=== PATIENT | female | born 1940 | race Caucasian/White ===

== ENCOUNTER 2019-01-04 14:13 | Emergency (ER) | payer MEDICARE ==
[2019-01-04 15:17] VITALS: BP 151/98
--- NOTE | 2019-01-04 15:21 | EDM.PDOC ---
<ReeseOpal wilson - Last Filed: 01/04/19 15:24> ED HPI GENERAL MEDICAL PROBLEM - General Chief Complaint: Back Pain or Injury Stated Complaint: BACK PAIN Time Seen by Provider: 01/04/19 14:45 Source of Information: Reports: Patient, Family History Limitations: Reports: No Limitations - History of Present Illness INITIAL COMMENTS - FREE TEXT/NARRATIVE: Alyx Jordan is a 78 year old male who presents to the ED with family for concerns of left sided back pain. She states she has had Kyphoplasty of 3 vertebrae in May. Since that time she has not been in any pain. 1 month ago her pain started and was not preceded by any specific event. She notes the pain is located above her left SI joint and radiates all the way down her left leg. She states activity and rest creates the pain. She notes her pain to be a 10/ 10. She walks with a walker and a cane at home. She has not followed up with Ortho since her surgery. She was completing PT but has not been for awhile now. She notes increased weakness. Denies numbness and tingling of her left and right leg. Left Hip Pain Score (Numeric/FACES): 10 - Related Data Allergies Allergy/AdvReac Type Severity Reaction Status Date / Time gabapentin Allergy Other Verified 01/04/19 14:38 pseudoephedrine HCl Allergy Chest Pain Verified 01/04/19 14:38 [From Actifed] triprolidine HCl Allergy Chest Pain Verified 01/04/19 14:38 [From Actifed] Home Meds: Home Meds Metoprolol Succinate [Toprol XL 100mg] 100 mg PO DAILY 07/02/14 [History] Simvastatin 10 mg PO DAILY 07/02/14 [History] oxyCODONE HCl [Oxycodone HCl] 10 mg PO Q4H 07/02/14 [History] Aspirin [Adult Low Dose Aspirin EC] 81 mg PO DAILY 09/26/15 [History] Acetaminophen [Acetaminophen Extra Strength] 500 mg PO Q6H 06/21/17 [History] Calcium Carbonate/Vitamin D3 [Calcium 600 + D3 Softgel] 1 each PO BID 06/21/17 [ History] Cholecalciferol (Vitamin D3) [Vitamin D3] 2,000 units PO DAILY 06/21/17 [History ] Lisinopril 40 mg PO DAILY 06/21/17 [History] Apixaban [Eliquis] 1 tab PO BID 01/04/19 [History] Furosemide [Lasix] 1 tab PO DAILY 01/04/19 [History] Past Medical History HEENT History: Reports: Impaired Vision Other HEENT History: glasses Cardiovascular History: Reports: Afib, High Cholesterol, Hypertension Gastrointestinal History: Reports: Hiatal Hernia 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 Neurological Surgical History: Reports: Other (See Below) Other Neurological Surgeries/Procedures: kyphoplasty Musculoskeletal Surgical History: Reports: Carpal Tunnel, Knee Replacement, Shoulder Surgery Social & Family History - Tobacco Use Smoking Status *Q: Never Smoker - Recreational Drug Use Recreational Drug Use: No ED ROS GENERAL - Review of Systems Review Of Systems: ROS reveals no pertinent complaints other than HPI. ED EXAM,LOWER BACK PAIN/INJURY - Physical Exam Exam: See Below Exam Limited By: No Limitations General Appearance: Alert, Moderate Distress Ears: Normal External Exam Nose: Normal Inspection Throat/Mouth: Normal Inspection Head: Atraumatic, Normocephalic Neck: Normal Inspection, Supple, Non-Tender Respiratory/Chest: No Respiratory Distress, Lungs Clear Cardiovascular: Irregularly Irregular Back Exam: Normal Inspection, Paraspinal Tenderness (on the left), Vertebral Tenderness (over lumbar spine), Other (Notes tenderness over left SI joint ) Extremities: Non-Tender Neurological: Alert, Normal Mood/Affect, CN II-XII Intact, Normal Gait, No Motor /Sensory Deficits, Straight Leg Raise (L). No: Straight Leg Raise (R) DTR - Lower Extremities: 1+: Ankle (R), Ankle (L) Psychiatric: Normal Affect, Normal Mood Skin Exam: Warm, Intact, Normal Color, No Rash Course - Vital Signs Last Recorded V/S: Last Vital Signs Temp 96.5 F 01/04/19 14:37 Pulse 92 01/04/19 15:16 Resp 16 01/04/19 15:16 BP 151/98 H 01/04/19 15:16 Pulse Ox 96 01/04/19 15:16 Departure - Departure Disposition: Home, Self-Care 01 Clinical Impression: Left leg pain - Discharge Information Referrals: Carlos Eduardo Soto MD [Primary Care Provider] - Forms: ED Department Discharge Additional Instructions: Please follow-up with your primary care or the [facility] [place] for further evaluation, call return to the emergency department worsening of symptoms <Johnathan Smith - Last Filed: 01/04/19 17:06> ED EXAM,LOWER BACK PAIN/INJURY - Physical Exam Text/Narrative:: Agree with exam below any time I flex or extend internally or externally rotate the left hip exacerbates pain, increased pain with ambulation Departure - Departure Time of Disposition: 17:05 Condition: Fair - Assessment/Plan Plan: Assessment Acuity = acute Site and laterality = left leg pain Etiology = unclear etiology Manifestations = none Location of injury = Home Lab values = CT scan of the hip shows no fracture Plan I did review CT scan results with her she is going to contact the [facility] [place] for further evaluation Johnathan Kwan MD was personally available for consultation in the ED. I have reviewed the chart and agree with the documentation as recorded by the ELLIOT Enrique, including the assessment, treatment plan and disposition. Johnathan Kwan MD personally saw and examined the patient. I have reviewed and agree with the PA Student's findings. This note was dictated using [employer] voice recognition software please call with any questions on syntax or grammar.
--- NOTE | 2019-01-04 16:40 | CRLCT ---
INDICATION: Left hip pain. COMPARISON: None. TECHNIQUE: Multi detector imaging of the pelvis. Axial, coronal and sagittal reformats left hip. Axial whole pelvis sequences. FINDINGS: Vertebroplasty cement L5 vertebral body. Degenerative arthrosis sacroiliac joints is moderate. Atherosclerosis of the ectatic distal aorta and iliacs. Sigmoid diverticulosis. No pelvic fracture. Left hip is appropriately aligned. No fracture. Mineralization of labrum and synovium. Mild degenerative joint space narrowing. IMPRESSION: No left hip or pelvic fracture. Chronic findings as discussed above. Please note that all CT scans at this facility use dose modulation, iterative reconstruction, and/or weight-based dosing when appropriate to reduce radiation dose to as low as reasonably achievable. Dictated by Saqib Medina MD @ Jan 04 2019 4:36PM Signed by Dr. Saqib Medina @ Jan 04 2019 4:40PM
== END 2019-01-04 17:26 | disposition home or self-care (01) ==
LOC: JP.ED 14:13
DX: M79.605 Pain in left leg (principal); I48.91 Unspecified atrial fibrillation; E78.00 Pure hypercholesterolemia, unspecified; I10 Essential (primary) hypertension; Z88.8 Allergy status to other drugs, medicaments and biological substances; Z79.82 Long term (current) use of aspirin; Z79.899 Other long term (current) drug therapy; Z98.890 Other specified postprocedural states; Z79.01 Long term (current) use of anticoagulants
CPT/HCPCS: 73700-LT; 99283-25

== ENCOUNTER 2019-01-09 08:52 | Day surgery (SDC) | payer MEDICARE ==
[~2019-01-09 08:52] MED LIST: Bupivacaine 0.5% 50 ML MDV ONE; Dextrose 5%-Lactated Ringers 1,000 ML IV SCH; Lidocaine 1% 20 ML MDV INJECT ONE; Lidocaine 1% with EPINEPHrine 1:100,000 50 ML MDV ONE; ceFAZolin 2 GM in Premix Bag 1 BAG IV SCH
[2019-01-09] MEDS ORDERED: fentaNYL 100 MCG/2 ML SDV ONE (10:56)
[2019-01-09] MEDS ORDERED: Propofol 200 MG/20 ML SDV ONE ×2 (10:56→12:56)
[2019-01-09] MEDS ORDERED: ceFAZolin 2 GM in Premix Bag 1 BAG IV ONE (11:00)
--- NOTE | 2019-01-09 14:04 | MY ---
Ultrasound guided require localization left breast CLINICAL HISTORY: Left breast carcinoma PROCEDURE: Irregular nodule in the inferior breast is again identified on ultrasound. Skin was marked. The skin was then prepped. 1% lidocaine local anesthesia was applied to the skin and subcutaneous tissue towards the target lesion. The Kopan localization needle was passed under ultrasound guidance a into and through the lesion. The wire was advanced and needle removed. Kopan wire was left in place and retracted slightly to open the Sofie. Patient was sent for two-view mammogram 2 VIEW POSTPROCEDURE MAMMOGRAM The Kopan wire is seen in the inferior lateral aspect of the left breast. The nodule is faintly visualized though some increased density due to infiltration local anesthesia and some hemorrhage obscured the nodule. IMPRESSION: Successful wire localization of an inferior left breast nodule No complications were encountered. SPECIMEN RADIOGRAPH left breast 2 radiographs at 90 degrees were obtained of the surgical specimen. Findings: Specimen contained the described nodule in the remainder of the localization wire. Impression: Specimen contains the targeted nodule
[2019-01-09 14:36] VITALS: BP 132/88
--- NOTE | 2019-01-16 12:13 | OR ---
DATE OF PROCEDURE: 01/09/2019 PREOPERATIVE DIAGNOSES: 1. Radiologically-suspicious mass, left breast. 2. Atypical skin lesions of right upper cheek x2. OPERATIVE PROCEDURES: 1. Ultrasound-guided excisional biopsy of left breast (). 2. Liquid nitrogen treatment of skin lesions, right upper cheek, x2 (15259, [id number]). ANESTHESIA: Local plus IV sedation. INDICATIONS FOR PROCEDURE: A 78-year-old presenting with radiologically-suspicious lesion in the lower outer quadrant of the left breast. After preop evaluation and discussion, she wished to proceed with excisional biopsy. The lesion was not palpable, therefore, preoperative needle localization is to be obtained. The potential risks of the procedure including bleeding, infection, and the possible need for additional treatment if a malignancy is confirmed were all gone over, and the patient wishes to proceed. Additionally, she has 2 skin lesions, that have some purplish hue, in the right cheek. Both of these measured up to about 1 cm in size, and are more or less [id number] just behind the right eye. These are being treated with liquid nitrogen. She is aware that this will result in some scabbing transiently, and these may potentially require excision should there not be adequate control of the lesions by means of the liquid nitrogen. DETAILS OF PROCEDURE: The patient was taken to the operating room and after successful localization of the area of concern in the left breast, the left breast and surrounding areas were prepped and draped while IV sedation was administered. Fluoroscopy was then used to optimize the location of the incision. Area over the left breast in the lower outer quadrant was then anesthetized with 1% lidocaine. The incision was made and carried down through the skin and subcutaneous tissue. The retractable wire was then identified and the tissue around the wire was then excised. A specimen radiograph confirmed adequate removal. This appeared to be roughly 1 to 1.5 cm maximum-sized lesion. This was quite hard and fairly suspicious for malignancy. At that point, hemostasis was obtained with electrocautery. Incision closed with some 3-0 and 4-0 Vicryl stitch deep, and a 4-0 Vicryl subcuticular stitch. Steri-Strips were then applied along with a dressing. The 2 lesions on the right upper cheek area were then both treated with liquid nitrogen. Two episodes of liquid nitrogen were used on each site and procedure then concluded. The patient was taken to the recovery room in a satisfactory condition. Ross Norris MD /[id number]
== END 2019-01-09 14:58 | disposition home or self-care (01) ==
LOC: JP.SDS 08:52
PROVIDERS: ATTEND Surgery
DX: C50.512 Malignant neoplasm of lower-outer quadrant of left female breast (principal); L98.8 Other specified disorders of the skin and subcutaneous tissue; I25.10 Atherosclerotic heart disease of native coronary artery without angina pectoris; I11.0 Hypertensive heart disease with heart failure; I50.9 Heart failure, unspecified; E78.5 Hyperlipidemia, unspecified; Z17.0 Estrogen receptor positive status [ER+]; Z95.5 Presence of coronary angioplasty implant and graft
CPT/HCPCS: 17000; 17003; 19285; 19301; 76098; 77065; 88305; 88341; 88342; 88360; J0690; J2704; J3010; J3490; J7042

== ENCOUNTER 2019-01-13 07:59 | Inpatient (IN) | payer MEDICARE ==
[~2019-01-13 07:59] MED LIST changes: -Bupivacaine 0.5% 50 ML MDV ONE; -Dextrose 5%-Lactated Ringers 1,000 ML IV SCH; +Isosulfan Blue 5 ML SDV ONE; -Lidocaine 1% 20 ML MDV INJECT ONE; -Lidocaine 1% with EPINEPHrine 1:100,000 50 ML MDV ONE; -ceFAZolin 2 GM in Premix Bag 1 BAG IV SCH
[2019-01-13] MEDS ORDERED: Midazolam 1 MG/ML 2 ML SDV ONE (08:09)
[2019-01-13] MEDS ORDERED: Glycopyrrolate 0.2 MG/ML 5 ML MDV ONE (08:09)
[2019-01-13] MEDS ORDERED: Rocuronium 50 MG/5 ML Vial ONE (08:09)
[2019-01-13] MEDS ORDERED: Propofol 200 MG/20 ML SDV ONE (08:09)
[2019-01-13] MEDS ORDERED: Ondansetron 4 MG/2 ML SDV ONE (08:09)
[2019-01-13] MEDS ORDERED: Neostigmine Methylsulfate 1 MG/ML 5 ML Syringe ONE (08:09)
[2019-01-13] MEDS ORDERED: Dexamethasone 4 MG/ML SDV ONE (08:09)
[2019-01-13] MEDS ORDERED: fentaNYL 250 MCG/5 ML SDV ONE (08:09)
[2019-01-13] MEDS: fentaNYL 25 MCG/HR Transdermal Patch TRDERM SCH (08:18)
[2019-01-13] MEDS ORDERED: Lidocaine 5% 700 MG Patch TOP PRN (08:30)
[2019-01-13] MEDS: HYDROmorphone 1 MG/ML Syringe IVPUSH PRN ×4 (08:38→13:39)
[2019-01-13] MEDS: Dextrose 5%-Lactated Ringers 1,000 ML IV SCH ×2 (08:40→20:35)
[2019-01-13] MEDS ORDERED: ceFAZolin 2 GM in Premix Bag 1 BAG IV ONE (10:00)
[2019-01-13] MEDS ORDERED: Succinylcholine 200 MG/10 ML MDV ONE (11:25)
[2019-01-13] MEDS ORDERED: Lactated Ringers 1,000 ML ONE (12:39)
[2019-01-13] MEDS ORDERED: fentaNYL/Normal Saline 600 MCG/30 ML PCA Vial IV PRN (14:11)
[2019-01-13] MEDS ORDERED: Naloxone 0.4 MG/ML SDV IV PRN (14:11)
[2019-01-13] MEDS ORDERED: Ondansetron 4 MG/2 ML SDV IVPUSH PRN (14:14)
[2019-01-13] MEDS: FENTANYL PATCH CHECK TOP SCH ×2 (14:32→20:46)
[2019-01-13] MEDS ORDERED: Nitroglycerin 0.4 MG Tab.SL SL PRN (14:56)
[2019-01-13] MEDS: ceFAZolin 1 GM in Premix Bag 1 BAG IV SCH (16:15)
[2019-01-13] MEDS: Acetaminophen 325 MG Tab PO SCH ×2 (16:16→21:54)
[2019-01-13] MEDS: Simvastatin 20 MG Tab PO SCH (20:34)
[2019-01-14] MEDS: ceFAZolin 1 GM in Premix Bag 1 BAG IV SCH ×2 (00:52→07:34)
[2019-01-14] MEDS: Acetaminophen 325 MG Tab PO SCH ×4 (06:08→22:07)
[2019-01-14] MEDS: Dextrose 5%-Lactated Ringers 1,000 ML IV SCH (06:09)
[2019-01-14] MEDS: HYDROmorphone 1 MG/ML Syringe IVPUSH PRN ×2 (08:39→15:02)
[2019-01-14] MEDS: HYDROmorphone 2 MG Tab PO PRN ×4 (08:39→22:07)
[2019-01-14] MEDS: Lidocaine 5% 700 MG Patch TRDERM SCH (08:52)
[2019-01-14] MEDS: Aspirin 81 MG Tab.EC PO SCH (08:53)
[2019-01-14] MEDS: Metoprolol Succinate 50 MG Tab.ER PO SCH (08:53)
[2019-01-14] MEDS: Spironolactone 25 MG Tab PO SCH (08:53)
[2019-01-14] MEDS: Furosemide 40 MG Tab PO SCH (08:53)
[2019-01-14] MEDS: Lisinopril 5 MG Tab PO SCH (08:55)
[2019-01-14] MEDS: FENTANYL PATCH CHECK TOP SCH ×2 (08:56→22:05)
[2019-01-14] MEDS: Calcitonin (Salmon) Nasal Spray 3.7 ML Bottle NAS SCH (08:57)
--- NOTE | 2019-01-14 09:29 | PN ---
DATE OF SERVICE: 01/14/2019 SUBJECTIVE: Alyx is postop day 1 following a left mastectomy. From a surgical standpoint of view, her pain is controlled. She has extreme chronic back pain and sciatica pain, which has not been controlled. 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 Daughter is requesting better pain management for her back. Labs this morning, hemoglobin 10.9, BNP is 3019 which is lower than on admission. On admission, BNP was 3976. FRANKLIN drains have put out 115 and 155 respectively of a light red drainage REVIEW OF SYSTEMS: Remainder of review of systems negative for any pertinent positives and negatives. OBJECTIVE: GENERAL: Alyx Jordan is a 78-year-old female. She is alert, oriented, is in quite a bit of pain, restless. VITAL SIGNS: TPR 97.9, 109, 18, blood pressure 129/98. HEENT: Negative. NECK: Supple. HEART: Regular rate and rhythm. LUNGS: Clear. Left mastectomy dressing is dry and intact. FRANKLIN drains as above. ABDOMEN: Soft and nontender. EXTREMITIES: With trace peripheral edema. ASSESSMENT: Left modified radical mastectomy with sentinel lymph node biopsy for left breast cancer, one positive lymph node. PLAN: 1. Regular diet. 2. Discontinue COATING AND EMBOSSING UNIT OPERATOR. 3. Dilaudid 2 mg p.o. every 4 hours p.r.n. pain. 4. Vistaril 100 mg IM q.6 hours p.r.n. pain. 5. Convert IV to saline lock. 6. Dilaudid 2 mg IV q.2 hours p.r.n. pain greater than 10. She also has a fentanyl 25 mcg patch put on on 01/13/2019 at 8:45 a.m. 7. Communication order written to rewrap the KELSEA wrap on, so it does not go around her neck. 8. Continue use of incentive spirometer every hour while awake. 9. Hospitalist consultation in regard to pain management of her back and sciatica nerve. 10.We will evaluate p.r.n. or in a.m. Karlie Alston PA-C /[id number]
[2019-01-14] MEDS: hydrOXYzine HCl 100 MG/2 ML SDV IM PRN (10:36)
--- NOTE | 2019-01-14 10:51 | PCM.CONS ---
H&P History of Present Illness - General Date of Service: 01/14/19 Admit Problem/Dx: Admission Diagnosis/Problem Admission Diagnosis/Problem Status post surgery Source of Information: Patient, Family, Provider, RN Notes Reviewed History Limitations: Reports: No Limitations - History of Present Illness Initial Comments - Free Text/Narative: Ms. Jordan is a 78-year-old woman who I been asked to see by Dr. Norris for further suggestions concerning evaluation and management of left back and leg pain. She has a history of recurrent back pain secondary to spinal compression fractures and has undergone a total of 6 vertebroplasties. Most recent intervention was in May 2018 when she had 3 vertebroplasties. She had done well following this with no significant back pain until 3 weeks ago when she experienced a new in different pain in the left lower back radiating into the left leg. This is been identified as lumbar radiculopathy and the plan was to proceed with epidural steroid injection on January 16. She was admitted to the hospital yesterday to undergo left mastectomy for a breast lesion identified on mammogram and ultrasound. Surgery went well and she was stable during the postoperative period until early this morning when she developed recurrent severe pain in her left back and leg. She is been started on a fentanyl patch yesterday and has been receiving oral Dilaudid, this does seem to be controlling the pain but it reoccurs with any type of movement. Lidocaine patches in place, she previously was given a trial of gabapentin which she was intolerant of because of confusion and hallucinations. She denies any weakness or numbness in the left leg, has been no bowel or bladder incontinence. Left Sacral Pain Score (Numeric/FACES): 10 - Related Data Allergies/Adverse Reactions: Allergies Allergy/AdvReac Type Severity Reaction Status Date / Time alendronate sodium Allergy Chest Pain Verified 01/13/19 08:45 gabapentin Allergy Other Verified 01/13/19 08:45 pseudoephedrine HCl Allergy Chest Pain Verified 01/13/19 08:45 [From Actifed] risedronate sodium Allergy Other Verified 01/13/19 08:45 [From Actonel] triprolidine HCl Allergy Chest Pain Verified 01/13/19 08:45 [From Actifed] Home Medications: Home Meds Metoprolol Succinate [Toprol XL 100mg] 100 mg PO DAILY 07/02/14 [History] Simvastatin 10 mg PO DAILY 07/02/14 [History] oxyCODONE HCl [Oxycodone HCl] 10 mg PO Q4H 07/02/14 [History] Aspirin [Adult Low Dose Aspirin EC] 81 mg PO DAILY 09/26/15 [History] Acetaminophen [Acetaminophen Extra Strength] 500 mg PO Q6H 06/21/17 [History] Calcium Carbonate/Vitamin D3 [Calcium 600 + D3 Softgel] 1 tab PO TID 06/21/17 [ History] Cholecalciferol (Vitamin D3) [Vitamin D3] 2,000 units PO DAILY 06/21/17 [History ] Apixaban [Eliquis] 5 mg PO BID 01/04/19 [History] Furosemide [Lasix] 40 tab PO DAILY 01/04/19 [History] Lisinopril 5 mg PO DAILY 01/06/19 [History] Nitroglycerin [Nitrostat] 0.4 mg SL ASDIRECTED 01/06/19 [History] Past Medical History HEENT History: Reports: Cataract, Impaired Vision, Macular Degeneration Other HEENT History: glasses Cardiovascular History: Reports: Afib, High Cholesterol, Hypertension, Other ( See Below) Other Cardiovascular History: "possible aortic aneurysm" Gastrointestinal History: Reports: GERD, Hiatal Hernia 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: Musculoskeletal History: Reports: Back Pain, Chronic, Fracture, Osteoporosis Neurological History: Reports: Migraines Endocrine/Metabolic History: Reports: Obesity/BMI 30+ Hematologic History: Reports: Anticoagulation Therapy Oncologic (Cancer) History: Reports: Cervix Other Oncologic History: skin cancer Dermatologic History: Reports: Other (See Below) Other Dermatologic History: skin lesions removed - Past Surgical History HEENT Surgical History: Reports: Other (See Below) Other HEENT Surgeries/Procedures: skin cancer nose Cardiovascular Surgical History: Reports: Coronary Artery Stent GI Surgical History: Reports: Other (See Below) Other GI Surgeries/Procedures: hiatal hernia repair. Female Surgical History: Reports: Section, Cervical Conization, Tubal Ligation Neurological Surgical History: Reports: Other (See Below) Other Neurological Surgeries/Procedures: kyphoplasty Musculoskeletal Surgical History: Reports: Carpal Tunnel, Knee Replacement, Shoulder Surgery, Other (See Below) Other Musculoskeletal Surgeries/Procedures:: kyphoplasty Oncologic Surgical History: Reports: Biopsy of Breast, Mastectomy Social & Family History - Family History Family Medical History: Noncontributory - Tobacco Use Smoking Status *Q: Former Smoker Years of Tobacco use: 40 Packs/Tins Daily: 1 Used Tobacco, but Quit: Yes Month/Year Tobacco Last Used: Second Hand Smoke Exposure: No - Caffeine Use Caffeine Use: Reports: Coffee - Recreational Drug Use Recreational Drug Use: No H&P Review of Systems - Review of Systems: Review Of Systems: See Below General: Denies: Fever, Chills, Weakness Pulmonary: Reports: No Symptoms Cardiovascular: Reports: No Symptoms Gastrointestinal: Reports: No Symptoms Neurological: Reports: Other (Pain left lower back with radicular features left leg) Exam - Exam Exam: See Below - Vital Signs Vital Signs: Last Vital Signs Temp 97.9 F 01/14/19 07:00 Pulse 60 01/14/19 08:53 Resp 18 01/14/19 07:00 BP 129/98 H 01/14/19 08:55 Pulse Ox 95 01/14/19 07:25 Weight: 185 lb - Exam General: Alert, Oriented, Cooperative, Moderate Distress Neck: Supple, Trachea Midline, +2 Carotid Pulse wo Bruit Lungs: Clear to Auscultation, Normal Respiratory Effort Cardiovascular: Regular Rate, Normal S1, Normal S2, Irregular Rhythm. No: Systolic Murmur, Diastolic Murmur GI/Abdominal Exam: Soft, Non-Tender, No Organomegaly, No Distention Extremities: Non-Tender, No Pedal Edema Neurological: Cranial Nerves Intact, Strength Equal Bilateral, Normal Speech, Normal Tone, Sensation Intact. No: Focal Deficit Neuro Extensive - Mental Status: Alert, Oriented x3, Normal Mood/Affect, Normal Cognition, Memory Intact - Patient Data Lab Results Last 24 hrs: Laboratory Results - last 24 hr 01/13/19 01/14/19 01/14/19 Range/Units 08:32 05:11 05:11 WBC 8.7 (4.5-11.0) K/uL RBC 3.70 (3.30-5.50) M/uL Hgb 10.9 L (12.0-15.0) g/dL Hct 35.3 L (36.0-48.0) % MCV 95 (80-98) fL MCH 30 (27-31) pg MCHC 31 L (32-36) % Plt Count 246 (150-400) K/uL Neut % (Auto) 81 H (36-66) % Lymph % (Auto) 9 L (24-44) % [place] % (Auto) 10 H (2-6) % Eos % (Auto) 0 L (2-4) % Baso % (Auto) 0 (0-1) % Sodium 139 L (140-148) mmol/L Potassium 4.0 (3.6-5.2) mmol/L Chloride 105 (100-108) mmol/L Carbon Dioxide 26 (21-32) mmol/L Anion Gap 12.0 (5.0-14.0) mmol/L BUN 12 (7-18) mg/dL Creatinine 0.6 (0.6-1.0) mg/dL Est Cr Clr Drug Dosing 57.37 mL/min Estimated GFR (MDRD) > 60 (>60) Glucose 135 H (74-106) mg/dL Calcium 9.1 (8.5-10.1) mg/dL Phosphorus 3.0 (2.5-4.9) mg/dL Magnesium 1.8 (1.8-2.4) mg/dL Total Bilirubin 0.4 (0.2-1.0) mg/dL AST 14 L (15-37) U/L ALT 13 (12-78) U/L Alkaline Phosphatase 63 (46-116) U/L NT-Pro-B Natriuret Pep 3019 H (5-450) pg/mL Total Protein 6.3 L (6.4-8.2) g/dL Albumin 2.8 L (3.4-5.0) g/dL Globulin 3.5 (2.3-3.5) g/dL Albumin/Globulin Ratio 0.8 L (1.2-2.2) CA 27-29 32.8 (0.0-38.6) U/mL Result Diagrams: 01/14/19 05:11 01/14/19 05:11 Consult PN Assessment/Plan Procedures: Procedures ASSAY OF CK (CPK) (09/13/15) ASSAY OF CREATININE (05/03/16) ASSAY OF TROPONIN QUANT (09/13/15) CARDIOVASCULAR STRESS TEST (07/05/17) CARDIOVASCULAR STRESS TEST (07/05/17) CARDIOVASCULAR STRESS TEST (06/30/17) CHEST X-RAY 1 VIEW FRONTAL (09/13/15) CHEST X-RAY 2VW FRONTAL&LATL (05/03/16) COMP SCREEN MAMMOGRAM ADD-ON (10/12/16) COMPLETE CBC W/AUTO DIFF WBC (09/13/15) COMPREHEN METABOLIC PANEL (09/13/15) CT ANGIOGRAPHY CHEST (05/03/16) CT LOWER EXTREMITY W/O DYE (01/04/19) DX MAMMO INCL CAD UNI (12/26/18) ELECTROCARDIOGRAM REPORT (09/13/15) ELECTROCARDIOGRAM TRACING (09/13/15) EMERGENCY DEPT VISIT (01/04/19) EMERGENCY DEPT VISIT (05/03/16) EMERGENCY DEPT VISIT (09/13/15) EMERGENCY DEPT VISIT (07/02/14) HOT OR COLD PACKS THERAPY (03/12/15) HT MUSCLE IMAGE SPECT MULT (07/05/17) MANUAL THERAPY 1/> REGIONS (05/31/14) PROTHROMBIN TIME (09/13/15) PT EVALUATION (03/12/15) ROUTINE VENIPUNCTURE (05/03/16) SCR MAMMO BI INCL CAD (12/16/18) THER/PROPH/DIAG INJ SC/IM (09/13/15) THERAPEUTIC EXERCISES (03/26/15) TTE W/DOPPLER COMPLETE (06/24/17) ULTRASOUND BREAST COMPLETE (12/26/18) ULTRASOUND BREAST LIMITED (11/24/17) ULTRASOUND THERAPY (05/18/14) URINALYSIS AUTO W/SCOPE (09/13/15) X-RAY EXAM THORAC SPINE 3VWS (05/03/16) Problem List Initiated/Reviewed/Updated: Yes My Orders Last 24 Hours: My Active Orders 01/14/19 10:30 Diclofenac Sodium [Voltaren 1% Gel] See Dose Instructions TOP QID 01/14/19 11:00 Dexamethasone 4 mg IVPUSH Q12H Plan: ASSESSMENT AND RECOMMENDATIONS LUMBAR RADICULOPATHY LEFT LEG-previous history of degenerative changes in the lumbar spine with multiple previous compression fractures treated with vertebroplasty. New-onset of pain in the last 3 weeks consistent with radiculopathy and nerve root impingement. Severe pain following surgery for mastectomy yesterday. No evidence of weakness or sensory changes by history or physical examination. -Continue fentanyl patch and oral Dilaudid -Voltaren gel to lower back 4 times daily -Decadron 4 mg IV every 12 hours 4 doses -Epidural steroid injection January 16 STATUS POST LEFT MASTECTOMY -Postoperative care per Dr. Norris Requesting Provider: HELEN Date Consult Requested: 01/14/19 Reason for Consult: Lumbar radiculopathy Patient History Reviewed: Yes
[2019-01-14] MEDS: Diclofenac Sodium 1% Gel 100 GM Tube TOP SCH ×3 (11:31→22:08)
[2019-01-14] MEDS: Dexamethasone 4 MG/ML SDV IVPUSH SCH ×2 (11:32→22:08)
[2019-01-14] MEDS: Simvastatin 20 MG Tab PO SCH (22:07)
[2019-01-15] MEDS: HYDROmorphone 2 MG Tab PO PRN ×5 (02:08→21:36)
[2019-01-15] MEDS: hydrOXYzine HCl 100 MG/2 ML SDV IM PRN ×2 (03:33→18:36)
[2019-01-15] MEDS: HYDROmorphone 1 MG/ML Syringe IVPUSH PRN ×2 (05:05→23:11)
[2019-01-15] MEDS: Acetaminophen 325 MG Tab PO SCH ×4 (05:25→21:33)
[2019-01-15] MEDS: Diclofenac Sodium 1% Gel 100 GM Tube TOP SCH ×4 (05:27→21:32)
[2019-01-15] MEDS ORDERED: Ondansetron 4 MG Tab.DIS PO PRN (07:11)
--- NOTE | 2019-01-15 08:24 | PN ---
DATE OF SERVICE: 01/15/2019 SUBJECTIVE: Alyx has been taking Dilaudid every 4 hours. She is using Voltaren ointment to area of pain and was started on Decadron/dexamethasone 4 mg IV every 12 hours scheduled. Her pain was controlled until around 6 a.m. and she was given 2 mg of IV push. FRANKLIN drains have put out 125 and 162 respectively. Oral intake 1047. Urine output 1750. Surgical pain is minimal. Her majority of source of pain is back pain secondary to spinal compression fracture. REVIEW OF SYSTEMS: Remainder of review of systems negative for any pertinent positives or negatives. OBJECTIVE: GENERAL: Alyx Jordan is a 78-year-old female. She is resting comfortably. VITAL SIGNS: TPR 97.5, 97, 16, blood pressure 126/71. HEART: Regular rate and rhythm. LUNGS: Clear. SKIN: Dressings have been dry and intact. FRANKLIN drain is intact. Abe bandage on. EXTREMITIES: Sequential compression devices are on. ASSESSMENT: 1. Left modified radical mastectomy with sentinel lymph node biopsy for left breast cancer and one positive lymph node. Date of surgery: 01/13/2019. Surgeon: Ross Norris MD. 2. Recurrent back pain secondary to spinal compression fractures, lumbar radiculopathy, left leg. PLAN: 1. Colace 100 mg b.i.d. 2. Milk of magnesia 30 mL. 3. Continue same regimen for pain. 4. Good pulmonary toilet. 5. We will evaluate p.r.n. or in a.m. Karlie Alston PA-C /[id number]
[2019-01-15] MEDS ORDERED: Magnesium Hydroxide 400 MG/5 ML Susp 30 ML Cup PO ONE (09:00)
[2019-01-15] MEDS: Aspirin 81 MG Tab.EC PO SCH (09:39)
[2019-01-15] MEDS: Docusate Sodium 100 MG Cap PO SCH ×2 (09:39→21:33)
[2019-01-15] MEDS: Furosemide 40 MG Tab PO SCH (09:39)
[2019-01-15] MEDS: Calcitonin (Salmon) Nasal Spray 3.7 ML Bottle NAS SCH (09:39)
[2019-01-15] MEDS: Spironolactone 25 MG Tab PO SCH (09:39)
[2019-01-15] MEDS: Lidocaine 5% 700 MG Patch TRDERM SCH (09:39)
[2019-01-15] MEDS: FENTANYL PATCH CHECK TOP SCH ×2 (09:41→21:33)
[2019-01-15] MEDS: Lisinopril 5 MG Tab PO SCH (09:42)
[2019-01-15] MEDS: Metoprolol Succinate 50 MG Tab.ER PO SCH (09:42)
[2019-01-15] MEDS: Dexamethasone 4 MG/ML SDV IVPUSH SCH ×2 (11:16→23:07)
[2019-01-15] MEDS: Simvastatin 20 MG Tab PO SCH (21:34)
[2019-01-16] MEDS: HYDROmorphone 2 MG Tab PO PRN ×4 (02:19→14:33)
[2019-01-16] MEDS: hydrOXYzine HCl 100 MG/2 ML SDV IM PRN (04:06)
[2019-01-16] MEDS: Acetaminophen 325 MG Tab PO SCH ×4 (06:25→22:06)
[2019-01-16] MEDS: Diclofenac Sodium 1% Gel 100 GM Tube TOP SCH ×4 (06:25→22:09)
[2019-01-16] MEDS: fentaNYL 25 MCG/HR Transdermal Patch TRDERM SCH (08:52)
[2019-01-16] MEDS: Magnesium Hydroxide 400 MG/5 ML Susp 30 ML Cup PO SCH ×2 (08:56→20:44)
[2019-01-16] MEDS: Calcitonin (Salmon) Nasal Spray 3.7 ML Bottle NAS SCH (08:56)
[2019-01-16] MEDS: Docusate Sodium 100 MG Cap PO SCH ×2 (08:58→20:46)
[2019-01-16] MEDS: Furosemide 40 MG Tab PO SCH (08:58)
[2019-01-16] MEDS: Metoprolol Succinate 50 MG Tab.ER PO SCH (08:58)
[2019-01-16] MEDS: Aspirin 81 MG Tab.EC PO SCH (08:58)
[2019-01-16] MEDS: Lisinopril 5 MG Tab PO SCH (08:59)
[2019-01-16] MEDS: Spironolactone 25 MG Tab PO SCH (08:59)
[2019-01-16] MEDS: Lidocaine 5% 700 MG Patch TRDERM SCH ×2 (09:01→11:59)
--- NOTE | 2019-01-16 09:04 | PN ---
DATE OF SERVICE: 01/16/2019 SUBJECTIVE: Alyx is doing well as far as her left mastectomy surgery goes. Vital signs have been stable. Oral intake 1080. Urine output 2450. FRANKLIN drains have put out 70 and 80 respectively of a light pink clear drainage. Incision looks good. There is no redness, hematoma, or swelling. Her pain in her lower back and sciatica is minimally managed. She does have a fentanyl patch on, and she is taking Dilaudid 4 mg every 4 hours, but wakes up around 3:00 a.m. and is in pain, greater than 10/10, and it is hard for her to catch up with pain control after that. She will be getting an injection today in her lower back. REVIEW OF SYSTEMS: Remainder of review of systems negative for any pertinent positives and negatives. OBJECTIVE: GENERAL: Alyx Jordan is a 78-year-old female. VITAL SIGNS: TPR 96.6, 70, 18, and blood pressure 117/77. HEENT: Negative. NECK: Supple. HEART: Regular rate and rhythm. LUNGS: Clear. CHEST: Left incision, alina intact. Incision healing well. FRANKLIN drains as above. EXTREMITIES: SCDs are not on right now. She is having quite a bit of pain and is moving persistently and moving her legs constantly to control pain. ASSESSMENT: 1. Left modified radical mastectomy with sentinel lymph node biopsy for left breast cancer and one positive lymph node. Date of surgery, 01/13/2019. Surgeon, Ross Norris MD. 2. Recurrent back pain secondary to spinal compression fractures. 3. Lumbar radiculopathy, left leg. PLAN: 1. Fentanyl patch to be replaced today per order already written. 2. Schedule Dilaudid every 4 hours during the night to avoid the break in pain control. 3. Milk of magnesia 30 mL b.i.d. 4. We will evaluate after her pain injection today and plan discharge in a.m. Karlie Alston PA-C /[id number]
[2019-01-16] MEDS ORDERED: Bupivacaine 0.25% 10 ML SDV ONE (09:12)
[2019-01-16] MEDS ORDERED: methylPREDNISolone Acetate 80 MG/ML SDV ONE (09:12)
[2019-01-16] MEDS: FENTANYL PATCH CHECK TOP SCH ×2 (09:22→20:46)
--- NOTE | 2019-01-16 11:12 | ANES ---
DATE OF SERVICE: 01/16/2019 INDICATION: Ms. Jordan is a 78-year-old female patient, referred to the [facility] to us by Dr. Soto as well as Dr. Norris. She has recently been diagnosed with breast cancer, albeit she has had a low back pain for quite some time. She has had multiple compression fractures, as to which she has had some vertebroplasties performed, and they would like us to try an epidural steroid series of injections. Please see the orders for the patient's preprocedure diagnosis as well as ICD-10 code. The risks and benefits of the procedure were explained to the patient and she was agreed. This was done in an inpatient setting. Her next appointment will be 10 days on Wednesday in our outpatient department. DESCRIPTION OF PROCEDURE: She was placed in a sitting position. Her back was prepped x3 with Betadine, 1% lidocaine skin local was used. The epidural was sterilely difficult to do due to the fact that I encountered a lot of bone. I eventually got the right angle and the epidural space was easily identified. There was negative CSF, negative blood, and negative paresthesias noted. Therefore, 80 mg of Depo-Medrol and 2 mL of 0.5% Sensorcaine with 7 mL preservative-free normal saline were injected with ease. The patient tolerated the epidural procedure very nicely. Her vital signs remained stable throughout the procedure and nurse was with me for the entire procedure. There were no anesthesia complications noted and we will see her in 10 days for epidural steroid number 2. Sher Han CRNA /[id number]
[2019-01-16] MEDS ORDERED: HYDROmorphone 2 MG Tab PO PRN (17:30)
[2019-01-16] MEDS ORDERED: HYDROmorphone 2 MG Tab PO SCH (18:00)
[2019-01-16] MEDS: Simvastatin 20 MG Tab PO SCH (20:47)
[2019-01-16] MEDS: HYDROmorphone 2 MG Tab PO SCH (22:07)
[2019-01-17] MEDS: HYDROmorphone 2 MG Tab PO SCH (01:37)
[2019-01-17] MEDS ORDERED: fentaNYL 50 MCG/HR Transdermal Patch TRDERM SCH (04:00)
[2019-01-17] MEDS: oxyCODONE 5 MG Tab PO PRN ×4 (04:14→20:14)
[2019-01-17] MEDS: Diclofenac Sodium 1% Gel 100 GM Tube TOP SCH (06:03)
[2019-01-17] MEDS: Acetaminophen 325 MG Tab PO SCH ×4 (06:04→22:03)
[2019-01-17] MEDS ORDERED: HYDROmorphone 2 MG Tab PO PRN (08:00)
[2019-01-17] MEDS: Aspirin 81 MG Tab.EC PO SCH (08:18)
[2019-01-17] MEDS: Docusate Sodium 100 MG Cap PO SCH ×2 (08:18→20:14)
[2019-01-17] MEDS: Furosemide 40 MG Tab PO SCH (08:18)
[2019-01-17] MEDS: Spironolactone 25 MG Tab PO SCH (08:18)
[2019-01-17] MEDS: Apixaban 5 MG Tab PO SCH ×2 (08:18→20:14)
[2019-01-17] MEDS: Magnesium Hydroxide 400 MG/5 ML Susp 30 ML Cup PO SCH ×2 (08:19→20:13)
[2019-01-17] MEDS: Metoprolol Succinate 50 MG Tab.ER PO SCH (08:19)
[2019-01-17] MEDS: Lisinopril 5 MG Tab PO SCH (08:19)
[2019-01-17] MEDS: Calcitonin (Salmon) Nasal Spray 3.7 ML Bottle NAS SCH (08:22)
[2019-01-17] MEDS: Lidocaine 5% 700 MG Patch TRDERM SCH (08:22)
[2019-01-17] MEDS: FENTANYL PATCH CHECK TOP SCH ×2 (08:23→20:45)
--- NOTE | 2019-01-17 09:58 | PN ---
CORRECTED REPORT DATE OF SERVICE: 01/17/2019 SUBJECTIVE: Alyx had an injection in her lower back, but she had increased amount of pain in the middle of the night. Her Duragesic patch was increased to 50 mcg. She was started back on her oxycodone 10 mg every 4 hours p.r.n. Dilaudid was discontinued. From a surgical standpoint of view, she has been afebrile. Incision looks good. FRANKLIN drains have put out 65 and 35 of a light pink clear drainage. She did have one bowel movement. REVIEW OF SYSTEMS: Remainder of review of systems negative for any pertinent positives and negatives. OBJECTIVE: GENERAL: Alyx Jordan is a pleasant 78-year-old female. She looks more comfortable today, less thrashing around. VITAL SIGNS: TPR 98.5, 71, 16, blood pressure 136/89. HEENT: Negative. NECK: Supple. HEART: Regular rate and rhythm. LUNGS: Clear. ABDOMEN: Incision dressing dry and intact. Ángel intact. FRANKLIN drains look good. EXTREMITIES: Without peripheral edema. ASSESSMENT: 1. Left modified radical mastectomy with sentinel lymph node biopsy for left breast cancer and one positive lymph node. Date of surgery is 01/13/2019; surgeon is Ross Norris MD. 2. Recurrent back pain secondary to spinal compression fraction. 3. Lumbar radiculopathy, left leg. 4. Epidural injection lower back, Sher Han CRNA, on 01/16/2019. PLAN: 1. Start Eliquis today. Discontinue taking it on today through Wednesday. No Eliquis on Wednesday. 2. Set up Oncology appointment for Wednesday on 01/24/2019 at [facility]. 3. We will evaluate p.r.n. or in a.m. Karlie Alston PA-C /[id number]
[2019-01-17] MEDS: Simvastatin 20 MG Tab PO SCH (20:13)
[2019-01-18] MEDS: oxyCODONE 5 MG Tab PO PRN ×2 (02:07→06:10)
[2019-01-18] MEDS: Acetaminophen 325 MG Tab PO SCH ×2 (05:39→09:52)
[2019-01-18 07:29] VITALS: BP 154/102
[2019-01-18] MEDS: Apixaban 5 MG Tab PO SCH (08:01)
[2019-01-18] MEDS: Docusate Sodium 100 MG Cap PO SCH (08:01)
[2019-01-18] MEDS: Spironolactone 25 MG Tab PO SCH (08:01)
[2019-01-18] MEDS: Furosemide 40 MG Tab PO SCH (08:02)
[2019-01-18] MEDS: Lidocaine 5% 700 MG Patch TRDERM SCH (08:02)
[2019-01-18] MEDS: Aspirin 81 MG Tab.EC PO SCH (08:02)
[2019-01-18] MEDS: Magnesium Hydroxide 400 MG/5 ML Susp 30 ML Cup PO SCH (08:03)
[2019-01-18] MEDS: Calcitonin (Salmon) Nasal Spray 3.7 ML Bottle NAS SCH (08:03)
[2019-01-18] MEDS: Metoprolol Succinate 50 MG Tab.ER PO SCH (08:04)
[2019-01-18] MEDS: Lisinopril 5 MG Tab PO SCH (08:04)
[2019-01-18] MEDS: FENTANYL PATCH CHECK TOP SCH (08:04)
--- NOTE | 2019-01-18 08:53 | DISCH ---
ADMISSION DIAGNOSES: 1. Left breast lump. 2. Chronic atrial fibrillation. 3. Hypertension. 4. Coronary artery disease without angina. 5. 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 6. Osteoporosis. 7. Degenerative joint disease. 8. Chronic narcotic dependence. 9. Arthritis, left hip. DISCHARGE DIAGNOSES: 1. Left modified radical mastectomy with sentinel lymph node biopsy for breast cancer with one positive lymph node. Date of surgery: 01/13/2018. Surgeon: Ross Norris MD. 2. Recurrent back pain secondary to spinal compression fracture. 3. Lumbar radiculopathy, left leg pain. 4. Epidural injection, lower back. Sher Han CRNA on 01/16/2019. HISTORY: Alyx Jordan is a pleasant 78-year-old female with left breast biopsy for carcinoma. After preoperative evaluation and discussion of possible risks and possible complications, she wished to proceed with surgical procedure. HOSPITAL COURSE: Alyx had her surgery on 01/13/2019. She had no operative complications. Pain was controlled from a surgical standpoint of view, but she had much difficulty with pain control in her left hip, sciatica in lower back. On postoperative day #1, she was started on a regular diet, had a hospitalist consult in regard to pain management. Voltaren topical was added and she was given 4 mg of Decadron/dexamethasone IV every 12 hours for 24 hours. She continued with oral Dilaudid scheduled and she could also get 2 mg IV push. On 01/16/2019, she received her injection from Sher Han CRNA. Around 3 a.m. on 01/17/2019, she had an increased amount of pain and requested to be switched back to her oxycodone and a fentanyl patch was increased to 50 mcg. On day of discharge, 01/18/2019, she was able to be discharged to home. Pain was managed in regard to her low back pain. Her incision looked good. FRANKLIN drains were intact. Activity good. Oral intake adequate. She did have a bowel movement. She was able to be discharged to home. She will be going home with her daughter. PHYSICAL EXAMINATION: GENERAL: Alyx Jordan is a 78-year-old female. She is sitting up in the chair. VITAL SIGNS: TPR is 97.4, 85, 16, blood pressure elevated for the first time at 157/102 to 105. It had been running diastolic 67 to 85. HEENT: Negative. NECK: Supple. HEART: Regular rate and rhythm. There is no irregularity today. LUNGS: Clear. BREASTS: Left mastectomy staple line. Ángel intact. Incision is healing well. There is no seroma noted. FRANKLIN drains x2 intact, draining a clear yellow drainage. EXTREMITIES: Negative. NEUROLOGIC: Intact. PSYCHIATRIC: Mood and affect appropriate. DISPOSITION: Discharged to home. CONDITION: Stable and improving. FOLLOWUP APPOINTMENT: With Karlie Alston PA-C, on 01/23/2019 at 10:15 a.m. HOME MEDICATIONS: 1. Fentanyl/Duragesic patch, replace every 72 hours. Next due to be replaced on Wednesday, . 2. Colace 100 mg p.o. daily. She is to resume her home medication of: 1. Tylenol Extra Strength 500 mg q.6 hours. 2. Eliquis 5 mg oral twice daily. Hold it for Wednesday. 3. Aspirin 81 mg oral. 4. Calcium 1 tablet three times a day. 5. Vitamin D3 2000 International Units daily. 6. Lasix 40 mg daily. 7. Lisinopril 5 mg oral daily. 8. Metoprolol-XL 100 mg oral daily. 9. Nitroglycerin 0.4 sublingual as directed. 10.Simvastatin 10 mg oral daily. 11.Oxycodone 10 mg every 4 hours. DIET: Usual diet as tolerated. Drink 8 to 10 glasses of water a day. ACTIVITY: As tolerated. No lifting greater than 10 pounds for 6 weeks. Driving: Do not drive on narcotic pain medications, fentanyl patch. Shower/bathing; may shower. Notify provider if any fever, increased pain, or drainage. Keep site clean and dry. SPECIAL INSTRUCTIONS: Strip, empty, measure, and record FRANKLIN drains 4 times a day. Bring record of drainage to clinic appointments. Use incentive spirometer 10 times every hour while awake. Pending an appointment at [facility] at the time of discharge.
[2019-01-18] MEDS: hydrOXYzine HCl 100 MG/2 ML SDV IM PRN (09:46)
--- NOTE | 2019-01-24 08:15 | OR ---
DATE OF PROCEDURE: 01/13/2019 PREOPERATIVE DIAGNOSIS: Carcinoma of the left breast. POSTOPERATIVE DIAGNOSIS: Carcinoma of the left breast with metastatic disease to a single sentinel lymph node on frozen section. OPERATIVE PROCEDURE: 1. Left modified radical mastectomy with sentinel lymph node biopsy followed by level III axillary dissection (50328). 2. Injection procedure for identification of sentinel lymph node (09559). ANESTHESIA: General. NAVAL SCIENCE TEACHER: Karlie Alston PA-C, and ELFEGO Ordaz. INDICATION FOR PROCEDURE: This is a 78-year-old presenting with a recently diagnosed carcinoma of the left breast with a maximal dimension of around 1.4 cm. The plan is to proceed with a left modified radical mastectomy with sentinel lymph node biopsy and additional axillary dissection, should the sentinel lymph node be positive. The potential risks of the procedure including bleeding, infection, possible local or distant tumor recurrence, as well as possibility of cardiopulmonary, septic, or hemorrhagic complications leading to were all discussed, and the patient wishes to proceed. DETAILS OF PROCEDURE: The patient was taken to the operating room and placed in a supine position. After general endotracheal anesthesia was induced, 4 mL of isosulfan blue dye was injected in the dermal area around the biopsy site and nipple-areolar complex. Following that, the left breast, axilla, and surrounding areas were prepped and draped. A transversely oriented elliptical incision widely incorporating the biopsy site as well as nipple-areolar complex was made, carried down through the skin and subcutaneous tissue. Subcutaneous flaps were then raised superiorly, inferiorly, laterally, and medially to the usual extent, and the breast was reflected off the chest wall in continuity with the pectoralis major fascia. At no point did we appear to be coming near to the biopsy site during that dissection. The lymphatics, which were now stained with the blue dye, were then followed into the axilla. Two lymph nodes were identified. These were sent for frozen section. One of these did have some metastatic tumor identified within it, per the frozen section. Given this, we then proceeded with a level III axillary dissection, opting not to do a more aggressive axillary dissection, as there appeared to be no additional or palpable enlarged lymph nodes or other pathology to make this seem like a more extensive metastatic process. This was accomplished with a combination of electrocautery and hemoclips, and the axillary dissection specimen was then delivered from the field. At this point, hemostasis appeared to be good. Two Florencio-Lennon drains were then placed inferior to the main incision and draped across the areas of the dissection and the incision was closed with some 3-0 Vicryl stitch deep and alina for the skin. Drains were affixed with some 3-0 Vicryl stitch as well, and the patient was taken to the recovery room in satisfactory condition. There were no evident complications. Physician exceptional children teacher assistant, Karlie Alston, played an essential role in assisting in this case, helping to position the patient, retract structures as needed, as well as suturing and cutting sutures when indicated. Her presence improved the patient's safety and decreased operative time. Ross Norris MD /[id number]
== END 2019-01-18 10:30 | disposition home or self-care (01) | DRG 580 ==
LOC: JP.SDSSCHI 07:59 → JP.SDS 07:59 → EDSTATUS 09:30 → JP.MS 14:11
PROVIDERS: ADMIT Surgery; ATTEND Surgery
PROC: 0HTU0ZZ Resection of Left Breast, Open Approach (ICD-10-PCS; 2019-01-13)
PROC: 07B60ZX Excision of Left Axillary Lymphatic, Open Approach, Diagnostic (ICD-10-PCS; 2019-01-13)
PROC: 00HU33Z Insertion of Infusion Device into Spinal Canal, Percutaneous Approach (ICD-10-PCS; principal; 2019-01-16)
DX: C50.912 Malignant neoplasm of unspecified site of left female breast (principal); C77.3 Secondary and unspecified malignant neoplasm of axilla and upper limb lymph nodes; M48.56XA Collapsed vertebra, not elsewhere classified, lumbar region, initial encounter for fracture; I50.30 Unspecified diastolic (congestive) heart failure; F11.20 Opioid dependence, uncomplicated; I48.2 Chronic atrial fibrillation; Z79.01 Long term (current) use of anticoagulants; I11.0 Hypertensive heart disease with heart failure; I25.10 Atherosclerotic heart disease of native coronary artery without angina pectoris; Z87.891 Personal history of nicotine dependence; Z87.310 Personal history of (healed) osteoporosis fracture; M16.12 Unilateral primary osteoarthritis, left hip; M81.0 Age-related osteoporosis without current pathological fracture; Z95.5 Presence of coronary angioplasty implant and graft; Z85.828 Personal history of other malignant neoplasm of skin; E78.00 Pure hypercholesterolemia, unspecified; K21.9 Gastro-esophageal reflux disease without esophagitis; H54.7 Unspecified visual loss; Z85.41 Personal history of malignant neoplasm of cervix uteri; Z96.659 Presence of unspecified artificial knee joint; Z79.82 Long term (current) use of aspirin; Z79.899 Other long term (current) drug therapy; Z88.8 Allergy status to other drugs, medicaments and biological substances; M51.17 Intervertebral disc disorders with radiculopathy, lumbosacral region
CPT/HCPCS: 36415; 80053; 81001; 83735; 83880; 84100; 85025; 85027; 85610; 85730; 86300; 88307; 88331; 88332; 88341; 88342; 94762; 97162-GP; 97530-GP; A9270-GY; J0330; J0690; J1040; J1100; J1170; J2250; J2405; J2704; J2710; J3010; J3410; J3490; J7042; J7120; Q9968

== ENCOUNTER 2019-01-25 13:48 | Outpatient (CLI) | payer MEDICARE ==
[2019-01-25] MEDS ORDERED: methylPREDNISolone Acetate 80 MG/ML SDV ONE (14:39)
[2019-01-25] MEDS ORDERED: Bupivacaine 0.25% 10 ML SDV ONE (14:39)
[2019-01-25 15:00] VITALS: BP 174/110; PULSE 118
--- NOTE | 2019-01-25 16:48 | ANES ---
DATE OF SERVICE: 01/25/2019 INDICATIONS: Ms. Jordan is a 78-year-old female patient, referred to the Pain Clinic to us by Dr. Soto. She is here today for her 2nd epidural. She states the first one gave her about two or three days of pretty decent pain relief, but after that, it did not really help much. We elected to go and do #2 today and we will see if this one helps. Please see the orders for the patient's preprocedure diagnosis as well as ICD-10 code. The risks and benefits of procedure were explained to the patient, and she wished to proceed with an epidural steroid injection. TECHNIQUE: I did place the epidural to the L5-S1 using a 17-gauge Tuohy needle in loss of resistance technique. The epidural had very good feel throughout, and the epidural space was easily identified. There was negative CSF, negative blood, and negative paresthesias noted. Therefore, 80 mg of Depo-Medrol and 2 mL of 0.25% Sensorcaine with 7 mL preservative- free normal saline were injected with ease. The patient tolerated the epidural procedure very nicely. Her vital signs remained stable throughout the procedure and nurse was with me for the entire procedure. There were no anesthesia complications noted, and she is going to return in 2 weeks for an epidural steroid #3. She was discharged to the [facility] per protocol. Sher Han CRNA /[id number]
== END 2019-01-25 15:01 | disposition home or self-care (01) ==
LOC: JP.PAIN 13:48
PROVIDERS: ATTEND Family Medicine
DX: M54.42 Lumbago with sciatica, left side (principal)
CPT/HCPCS: 62322; J1040; J3490

== ENCOUNTER → 2019-02-01 | Outpatient (CLI) | payer MEDICARE ==
--- NOTE | 2019-02-03 09:47 | CRLMR ---
Indication: Lumbar spine pain with left radiculopathy, low back pain for over 6 weeks, red flag symptoms. History of breast cancer. Technique: Noncontrast sagittal and axial T1, axial sagittal coronal T2, and sagittal STIR sequences are provided. Comparison: MRI 10/26/2017 Findings: Levoscoliosis with apex at L3. Stable multilevel compression fractures and vertebroplasties at T12-L5. Multilevel advanced degenerative changes in the lumbar spine are again noted. The conus medullaris is normal in signal and location. New marrow replacing expansile lesions consistent with metastases. There is a 3.3 x 2.8 cm (TR by AP) mass in the posterior aspect of L5 vertebral body with epidural extension resulting in moderate spinal canal stenosis and impingement of the left S1 nerve root. There is a large expansile lesion in the left iliac bone measuring 6.7 x 4.8 cm. There is a partially visualized 2.1 cm marrow placing lesion of the right iliac bone. T11-12: Retropulsion of the posterior superior corner of T12 indents the thecal sac but does not result in significant spinal canal stenosis. No neural foramina narrowing. T12-L1: Retropulsion of the posterior superior corner of L1 results in mild indentation of the thecal sac without significant spinal canal stenosis or neural foramina narrowing. L1-2: Slight anterolisthesis versus retropulsion of the L2 posterior superior corner indents the thecal sac without significant spinal canal stenosis. Ligamentum flavum buckling and facet arthrosis. No neural foramina narrowing. L2-3: Mild disc bulge and mild facet arthrosis. No spinal canal stenosis or neural foraminal narrowing. L3-4: Mild disc bulge, moderate left facet arthrosis. No spinal canal stenosis. Mild right neural foraminal narrowing due to facet arthrosis. L4-5: Severe disc height loss. Moderate facet arthrosis. There is a 1.7 x 2.4 cm (AP x CC) T2 hypointense T1 hyperintense lesion in the dorsal epidural space at L4-5 which results in moderate spinal canal stenosis and severe left subarticular recess narrowing could represent a large proteinaceous synovial cyst or hematoma. Post-contrast images may be helpful. L5-S1: Moderate asymmetric disc height loss on the left side, epidural tumor extension results in severe left subarticular recess narrowing and impingement of the descending left S1 nerve root. Moderate central canal stenosis. Moderate bilateral facet arthrosis. Severe left neural foraminal narrowing with impingement of exiting L5 nerve root and moderate right neural foraminal narrowing with possible impingement of exiting right L5 nerve root. Impression: 1. New marrow replacing expansile lesions consistent with metastases. There is a 3.3 x 2.8 cm (TR by AP) mass in the posterior aspect of L5 vertebral body with epidural extension resulting in moderate spinal canal stenosis and impingement of the left S1 nerve root. There is a large expansile lesion in the left iliac bone measuring 6.7 x 4.8 cm. There is a partially visualized 2.1 cm marrow placing lesion of the right iliac bone. 2. Multilevel advanced degenerative changes in the lumbar spine are again noted. Multilevel compression fractures and vertebroplasties at T12-L5. Stable levoscoliosis with apex at L3. 3. At L4-5 there is a 1.7 x 2.4 cm (AP x CC) T2 hypointense T1 hyperintense lesion in the dorsal epidural space at L4-5 which results in moderate spinal canal stenosis and severe left subarticular recess narrowing could represent a large proteinaceous synovial cyst or hematoma. Post-contrast images may be helpful. Dictated by Giovanny Almendarez MD @ Feb 03 2019 9:05AM Signed by Dr. Giovanny Almendarez @ Feb 03 2019 9:45AM
== END ==
LOC: JP.MRI 14:51
PROVIDERS: ATTEND Family Medicine
DX: M54.42 Lumbago with sciatica, left side (principal); G89.29 Other chronic pain; M47.816 Spondylosis without myelopathy or radiculopathy, lumbar region; M48.08 Spinal stenosis, sacral and sacrococcygeal region; M48.54XA Collapsed vertebra, not elsewhere classified, thoracic region, initial encounter for fracture
CPT/HCPCS: 72148